=== PATIENT | male | born 1995 | race Caucasian/White ===

== ENCOUNTER 2024-09-27 13:11 | Emergency (ER) | payer MEDICAID, SELFPAY ==
[2024-09-27 13:15] VITALS: BP 127/83; PULSE 93; RESP 14; TEMP 36.6; O2SAT 98
[2024-09-27] MEDS: Sulfameth/Trimeth DS TAB 1 TAB PO (14:10)
[2024-09-27] MEDS: Cephalexin 500 MG CAP PO (14:10)
[2024-09-27] MEDS: Lidocaine 1% Pres-Free W/EPI 1/200,000 30 ML VIAL IJ (14:10)
[2024-09-27] MEDS: Lidocaine/Epinephri/Tetracaine Topical Gel 3 ML TP (14:10)
--- NOTE | 2024-09-27 15:26 | ED.GENADUL_ITS ---
Discharge Plan Disposition Patient Disposition: Home Condition: Stable Discharge Details Clinical Impression: Abscess of face Primary Care Provider: Eli,Local ED Provider: Chaka Rosenthal Home Meds and New Rx's Prescriptions: New cephalexin 500 mg capsule 500 mg PO QID Qty: 27 0RF sulfamethoxazole-trimethoprim [Bactrim DS] 800-160 mg tablet 1 tab PO BID Qty: 13 0RF Discharge Instructions Instructions: Abscess Incision and Drainage ED Additional Instructions: Please continue warm compresses 3 times a day over the next 1 week to encourage drainage. Please take full course of antibiotic as prescribed. Please follow-up with your primary care physician. Return to the emergency department immediately for any worsening or new concer petey symptoms. HPI General Mode of arrival: ambulatory . Date/Time Provider Initiated Documentation: 09/27/24 13:26 . Limitations to Documentation: no limitations . Information obtained by: patient . HPI Narrative: HISTORY OF PRESENT ILLNESS The patient presents with facial swelling for 2 days, initially attributed to a pimple. Mild pain and minimal drainage noted. Applied triple antibiotic ointment. No fever reported, but suspects he may have one currently; took Tylenol an hour ago. No dental pain, rash, or additional swelling. 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 Smokes marijuana, no IV drug use or alcohol consumption. Previous chainsaw injury to finger healed without complications. Some subjective fever t jackie. Related Data Home Medications ?Medication ?Instructions ?Recorded ?Confirmed cephalexin 500 mg capsule 500 mg PO QID #27 caps 09/27/24 sulfamethoxazole 800 1 tab PO BID #13 tabs 09/27/24 mg-trimethoprim 160 mg tablet (Bactrim DS) Previous Rx's ?Medication ?Instructions ?Recorded cephalexin 500 mg capsule 500 mg PO QID #27 caps 09/27/24 sulfamethoxazole 800 1 tab PO BID #13 tabs 09/27/24 mg-trimethoprim 160 mg tablet (Bactrim DS) Allergies Allergy/AdvReac Type Severity Reaction Status Date / Time No Known Allergies Allergy Unverified 09/27/24 13:19 General Stated Complaint: Cellulitis SUN: 3 Review of Systems Integumentary/Breasts Skin/Breast: Reports as per HPI Exam HENMT Face and sinus: fluctuance (Left chin) Mouth: oral mucosae normal Neck Neck: trachea midline, lymphadenopathy (Left submandibular enlarged node), nontender and No submandibular swelling Skin Other: Swelling with fluctuance left chin with overlying erythema Course Vital Signs Vital signs: Vital Signs Temperature 36.6 C 09/27/24 13:15 Pulse 93 H 09/27/24 13:15 Respiratory Rate 14 09/27/24 13:15 Blood Pressure 127/83 09/27/24 13:15 Pulse Oximetry 98 09/27/24 13:15 Temperature 36.6 C 09/27/24 13:15 Temperature Source Oral 09/27/24 13:15 Pulse 93 H 09/27/24 13:15 Respiratory Rate 14 09/27/24 13:15 Blood Pressure 127/83 09/27/24 13:15 Blood Pressure Position Sitting 09/27/24 13:15 Pulse Oximetry 98 09/27/24 13:15 Oxygen Delivery Method Room Air 09/27/24 13:15 Oxygen Flow Rate 0 09/27/24 13:15 Pain Level 6 09/27/24 13:15 Procedure Abscess Drainage Date of Procedure: 09/27/24 Time of Procedure: 15:33 Provider that performed the procedure: Chaka Rosenthal Standard Time Out Performed: Yes Patient Consented: Verbally Ultrasound: Not used Complications: None Procedure Description Note: Location: Left mandible 11 blade used. Small purulent drainage. Abscess irrigated with sterile saline. Medical Decision Making ASSESSMENT AND PLAN Initial Assessment: Facial swelling likely due to MRSA infection, streptococcal infection possible. History of MRSA and sepsis increases likelihood of MRSA colonization. ED Course: - Ultrasound to assess need for drainage. - Prescribe antibiotics for MRSA and streptococcal coverage. Initial dose provided here in the emergency department. -Incision and drainage performed. Final Assessment: Facial swelling likely due to MRSA infection, streptococcal infection possible. Ultrasound performed and identified small abscess. Incision and drainage performed. Bactrim and Keflex prescribed. Clinical Impression: - Facial abscess. Likely MRSA infection Disposition: - Discharge MDM Components Evaluation: - Number of Differential Diagnoses or Management Options: MRSA infection, streptococcal infection - Amount and Complexity of Data Reviewed: Ultrasound - Risk of Complication and Morbidity or Mortality: High risk due to history of MRSA and sepsis This document was written with the assistance of TANNER Hernadnez. The patient consented to its use. Quality:SDOH Health Related Social Needs: No Data to Display PFSH All Active Problems Abscess of face (Acute) Social History Smoking/Tobacco Use Status: Current every day Smoking risk assessment performed?: Yes Alcohol Intake: current Alcohol Intake frequency: holidays/special occasions only Drug use: Daily Substance use type: marijuana Details: Pt smokes marijuana daily. Do you feel safe at home: Yes Do you feel safe in your relationship?: Yes POCUS Exam (ED) Limited Soft Tissue Exam DATE OF EXAM: 09/27/24 TIME OF EXAM: 15:36 PROVIDER THAT PERFORMED THE STUDY: Chaka Rosenthal IS THIS A REPEAT EXAM DURING THIS ENCOUNTER: No DIFFERENTIAL DIAGNOSES: Facial abscess
[2024-09-27 15:33] VITALS: BP 144/65; PULSE 75; RESP 16; O2SAT 100
[2024-09-27 15:43] VITALS: BP 144/65; PULSE 75; RESP 16; TEMP 36.6; O2SAT 97
== END 2024-09-27 15:45 | disposition home or self-care (01) ==
PROVIDERS: Emergency Provider Student in an Organized Health Care Education/Training Program
DX: L02.01 Cutaneous abscess of face (principal)
CPT/HCPCS: 10060; J2004